=== PATIENT | female | born 1960 | race Two or more races ===

== ENCOUNTER 2017-09-30 17:30 | Observation (INO) | payer OTHER ==
[~2017-09-30] VITALS: Ht 152.4 cm; Wt 85.7 kg
[2017-09-30 18:24] LABS: BASO % 1 % (0-3); EOS # 0.1 x10^3/uL (0.0-0.7); EOS % 1 % (0-3); HEMATOCRIT 45.4 % (36.0-47.0); HEMOGLOBIN 15.5 g/dL (12.0-15.5); LYMPH # 2.6 x10^3/uL (1.0-4.8); LYMPH % 45 % (24-48); MEAN CORPUSCULAR HEMOGLOBIN 31 pg (25-35); MEAN CORPUSCULAR HGB CONC 34 g/dL (31-37); MEAN CORPUSCULAR VOLUME 91 fL (79-100); MONO # 0.4 x10^3/uL (0.0-1.1); MONO % 6 % (0-9); NEUT # 2.7 x10^3uL (1.8-7.7); NEUT % 47 % (31-73); PLATELET COUNT 262 x10^3/uL (140-400); RED CELL DISTRIBUTION WIDTH 13.2 % (11.5-14.5); WHITE BLOOD COUNT 5.8 x10^3/uL (4.0-11.0)
[2017-09-30 18:33] LABS: CALCIUM 9.6 mg/dL (8.5-10.1); CREATININE 0.9 mg/dL (0.6-1.0); POTASSIUM 3.3 mmol/L (3.5-5.1)
--- NOTE | 2017-09-30 19:21 | EKG ---
[facility] [address] [place] [address] Test Date: 2017-09-30 Test Time: 17:37:54 Pat Name: FREEDOM PARISH Department: Room: Gender: F Teacher Lip Reading: : 1960 Requested By: QUIRINO PINA Order Number: [id number] Reading MD: Chriss Vaughn MD Measurements Intervals [place] Rate: 92 P: 39 PA: 144 QRS: 40 QRSD: 74 T: 43 QT: 346 QTc: 432 Interpretive Statements SINUS RHYTHM Electronically Signed On 10-02-2017 15:21:02 CDT by Chriss Vaughn MD
--- NOTE | 2017-09-30 21:03 | PHYS DOC ---
Past Medical History Past Medical History: High Cholesterol, Hypertension Past Surgical History: Cholecystectomy Alcohol Use: None Drug Use: None Adult General Chief Complaint Chief Complaint: CHEST PAIN [facility] HPI Patient is a 56 year old female who presents with chest pain. Patient reports that she has been having a dullness or heavy sensation in her chest over the last 3 nights. Pain is been there consistently. It is sometimes worse when she takes a deep breath. Pain intermittently has radiated to the left and right arms and right shoulder. The patient denies a prior history of coronary artery disease. She states she did have a stress test many years earlier but was in a different state. She has not had a fever or chills or cough. She does have a significant family history. She states her brother had a heart attack when he was her age. Her father also had significant coronary artery disease and from a heart attack in his 50s. The patient has a secondary complaint of generalized frontotemporal and occipital headaches. She states she has a history of these headaches about monthly but has had a persistent headache over the last 4-5 days which she describes to be the worst headache. It is atypical for her headaches the last so long. She does not have vision changes. No nausea or vomiting. No focal neuro complaints. Her headaches have not previously been evaluated. Review of Systems Review of Systems Constitutional: Denies fever or chills Eyes: Denies change in visual acuity HENT: Denies nasal congestion Respiratory: Denies cough or shortness of breath Cardiovascular: No additional information not addressed in HPI GI: Denies abdominal pain, nausea, vomiting Musculoskeletal: Denies back pain Integument: Denies rash or skin lesions Neurologic: Denies focal neuro complaints All other systems were reviewed and found to be within normal limits, except as documented in this note. Allergies Allergies Allergies Coded Allergies Type Severity Reaction Last Updated Verified No Known Drug Allergies 07/06/15 No Physical Exam Physical Exam Constitutional: Well developed, well nourished, no acute distress HENT: Normocephalic, atraumatic Eyes: PERRLA, EOMI Neck: Normal range of motion, no tenderness, supple Cardiovascular:Heart rate regular rhythm, no murmur Lungs & Thorax: Bilateral breath sounds clear to auscultation Abdomen: Bowel sounds normal, soft Skin: Warm, dry, no erythema Extremities: No edema Neurologic: Alert and oriented X 3 Psychologic: Affect normal Current Patient Data Vital Signs Vital Signs Date Time Temp Pulse Resp B/P (MAP) Pulse Ox O2 Delivery O2 Flow Rate FiO2 09/30/17 20:55 90 20 145/90 (108) 97 Room Air 09/30/17 17:37 98.8 98.8 Lab Values Laboratory Tests Test 09/30/17 18:10 White Blood Count 5.8 x10^3/uL (4.0-11.0) Red Blood Count 5.00 x10^6/uL (3.50-5.40) Hemoglobin 15.5 g/dL (12.0-15.5) Hematocrit 45.4 % (36.0-47.0) Mean Corpuscular Volume 91 fL (79-100) Mean Corpuscular Hemoglobin 31 pg (25-35) Mean Corpuscular Hemoglobin Concent 34 g/dL (31-37) Red Cell Distribution Width 13.2 % (11.5-14.5) Platelet Count 262 x10^3/uL (140-400) Neutrophils (%) (Auto) 47 % (31-73) Lymphocytes (%) (Auto) 45 % (24-48) Monocytes (%) (Auto) 6 % (0-9) Eosinophils (%) (Auto) 1 % (0-3) Basophils (%) (Auto) 1 % (0-3) Neutrophils # (Auto) 2.7 x10^3uL (1.8-7.7) Lymphocytes # (Auto) 2.6 x10^3/uL (1.0-4.8) Monocytes # (Auto) 0.4 x10^3/uL (0.0-1.1) Eosinophils # (Auto) 0.1 x10^3/uL (0.0-0.7) Basophils # (Auto) 0.0 x10^3/uL (0.0-0.2) D-Dimer (Micheline) 0.47 ug/mlFEU (0.00-0.50) Sodium Level 139 mmol/L (136-145) Potassium Level 3.3 mmol/L (3.5-5.1) L Chloride Level 104 mmol/L (98-107) Carbon Dioxide Level 29 mmol/L (21-32) Anion Gap 6 (6-14) Blood Urea Nitrogen 15 mg/dL (7-20) Creatinine 0.9 mg/dL (0.6-1.0) Estimated GFR (Cockcroft-Gault) 65.0 Glucose Level 132 mg/dL (70-99) H Calcium Level 9.6 mg/dL (8.5-10.1) Troponin I Quantitative < 0.017 ng/mL (0.000-0.055) CK-Bcx-P-Type Natriuretic Peptide 24 pg/mL (0-124) Laboratory Tests 09/30/17 18:10 Laboratory Tests 09/30/17 18:10 EKG EKG No STEMI Interpretation Time: 17:40 Radiology/Procedures Radiology/Procedures CXR: no acute findings seen Course & Med Decision Making Course & Med Decision Making Pertinent Labs and Imaging studies reviewed. (See chart for details) Patient was evaluated in the emergency department for chest pain. She describes the pain to be more of a heaviness or pressure. She was also evaluated for worsening generalized headache symptoms. She did have a CT scan of her head which did not reveal acute findings. She was treated with a very small dose of morphine, Compazine, and Benadryl which did improve her headache syndrome. Regarding her chest pain, the patient has significant family history as well as some additional risk factors. Her EKG was nonacute in the ER. Her troponin was not elevated. The patient is admitted for observation and to receive cardiology evaluation for risk stratification as indicated. The patient is agreeable to the plan of care. The interpretive Sisteer telephone was used to communicate with the patient and all of her questions were answered prior to admission. The patient was agreeable to the plan of care. Dragon Disclaimer Dragon Disclaimer This electronic medical record was generated, in whole or in part, using a voice recognition dictation system. Departure Departure Referrals: MYRANDA TORRES MD (PCP) QUIRINO PINA DO Sep 30, 2017 21:03
[2017-09-30] MEDS ORDERED: NITROGLYCERIN SUBLINGUAL 0.4 MG BOTTLE OF 25. SL PRN (21:15)
[2017-09-30] MEDS ORDERED: MORPHINE SULFATE 4 MG/ML VIAL. IV PRN (21:15)
[2017-09-30] MEDS ORDERED: ACETAMINOPHEN 325 MG TABLET. PO PRN (21:15)
[2017-09-30] MEDS ORDERED: ONDANSETRON PF 4 MG/2 ML VIAL. IV PRN (21:15)
--- NOTE | 2017-09-30 21:22 | RAD ---
CT Head W/O Contrast: History: headache, no priors Comparison: none Axial images were obtained without contrast. The rinaldi and white matter appears normal and symmetrical for the patients age. There is no mass effect, extraaxial fluid collections or hydrocephalus. There is no gross bleed. There is no focal loss of rinaldi-white matter distinction to suggest acute ischemia, i.e. stroke. Impression: No acute findings. RS Compliance Statement: One or more of the following individualized dose reduction techniques were utilized for this examination: 1. Automated exposure control 2. Adjustment of the mA and/or kV according to patient size 3. Use of iterative reconstruction technique Electronically signed by: Steven Valencia III, MD (09/30/2017 9:18 PM) [facility]
[2017-09-30] MEDS ORDERED: MORPHINE SULFATE 2 MG/ML VIAL. IV ONE (21:30)
[2017-09-30] MEDS ORDERED: diphenhydrAMINE 50 MG/ML VIAL IVP ONE (21:30)
[2017-09-30] MEDS ORDERED: PROCHLORPERAZINE 10 MG/2 ML VIAL. IV ONE (21:30)
[2017-09-30 23:00] VITALS: BP 163/87
[2017-10-01] MEDS ORDERED: simvastatin (00:12)
[2017-10-01] MEDS ORDERED: lisinopril (00:12)
[2017-10-01 03:00] VITALS: BP 104/62
[2017-10-01 04:32] LABS: BASO % 0 % (0-3); EOS # 0.1 x10^3/uL (0.0-0.7); EOS % 1 % (0-3); HEMATOCRIT 42.2 % (36.0-47.0); HEMOGLOBIN 14.5 g/dL (12.0-15.5); LYMPH # 2.5 x10^3/uL (1.0-4.8); LYMPH % 40 % (24-48); MEAN CORPUSCULAR HEMOGLOBIN 31 pg (25-35); MEAN CORPUSCULAR HGB CONC 34 g/dL (31-37); MEAN CORPUSCULAR VOLUME 91 fL (79-100); MONO # 0.4 x10^3/uL (0.0-1.1); MONO % 7 % (0-9); NEUT # 3.2 x10^3uL (1.8-7.7); NEUT % 51 % (31-73); PLATELET COUNT 240 x10^3/uL (140-400); RED BLOOD COUNT 4.65 x10^6/uL (3.50-5.40); RED CELL DISTRIBUTION WIDTH 13.3 % (11.5-14.5); WHITE BLOOD COUNT 6.3 x10^3/uL (4.0-11.0)
[2017-10-01 07:00] VITALS: BP 147/90
--- NOTE | 2017-10-01 07:50 | RAD ---
EXAM: Portable upright AP view of the chest DATE: 09/30/2017 6:03 PM INDICATION: left side chest pain today COMPARISON: Acute abdominal series 06/20/2015 FINDINGS/ IMPRESSION: The heart is not enlarged. Mediastinal and hilar contours are normal. No focal parenchymal airspace opacity. No pleural effusion or pneumothorax. Electronically signed by: Leonard Cunha MD (10/01/2017 7:46 AM) [facility]
[2017-10-01 07:55] LABS: CALCIUM 9.7 mg/dL (8.5-10.1); CREATININE 0.8 mg/dL (0.6-1.0); GFR 74.5; POTASSIUM 3.7 mmol/L (3.5-5.1)
[2017-10-01] MEDS ORDERED: MORPHINE SULFATE 2 MG/ML VIAL. IV PRN (08:30)
[2017-10-01] MEDS ORDERED: ONDANSETRON PF 4 MG/2 ML VIAL. IV PRN (08:30)
[2017-10-01] MEDS ORDERED: ONDANSETRON ODT 4 MG TAB.RAPDIS. PO PRN (08:30)
[2017-10-01] MEDS ORDERED: HYDROcodone/APAP 5/325MG 1 TAB TABLET PO PRN (08:30)
[2017-10-01] MEDS ORDERED: LISINOPRIL 10 MG TABLET PO SCH (09:00)
[2017-10-01 09:08] LABS: CHOLESTEROL/HDL RATIO 4.8
[2017-10-01 11:00] VITALS: BP 180/108
--- NOTE | 2017-10-01 11:05 | PDOC2 ---
CARDIAC CONSULT DATE OF CONSULT Date of Consult DATE: 10/01/17 TIME: 11:03 REASON FOR CONSULT Reason for Consult: chest pain REFERRING PHYSICIAN Referring Physician: Octavio SOURCE Source: Chart review, Patient HISTORY OF PRESENT ILLNESS HISTORY OF PRESENT ILLNESS 56 year old female admitted through the ER with c/o chest pain occurring since Friday. Ibuprofen relieved pain that day. Recurred and presented to ER yesterday with c/o bilateral chest pain. Unclear if associated symptoms. Also with c/o headache at the same time. EKG and troponin levels not consistent with AMI. No pain overnight. Reason for Visit: chest pain PAST MEDICAL HISTORY Cardiovascular: HTN, Hyperlipidemia PAST SURGICAL HISTORY Past Surgical History: Cholecystectomy FAMILY HISTORY Family History: Heart Disease SOCIAL HISTORY Smoke: No ALCOHOL: none Drugs: None CURRENT MEDICATIONS CURRENT MEDICATIONS Current Medications Medications (Trade) Dose Ordered Sig/Lorenzo Route PRN Reason Start Time Stop Time Status Last Admin Dose Admin Morphine Sulfate (Morphine Sulfate) 2 mg 1X ONCE IV 09/30/17 21:30 09/30/17 21:31 DC 09/30/17 21:31 Prochlorperazine Edisylate (Compazine) 10 mg 1X ONCE IV 09/30/17 21:30 09/30/17 21:31 DC 09/30/17 21:31 Diphenhydramine HCl (Benadryl) 12.5 mg 1X ONCE IVP 09/30/17 21:30 09/30/17 21:31 DC 09/30/17 21:31 ALLERGIES ALLERGIES: Coded Allergies: No Known Drug Allergies (Unverified , 07/06/15) ROS General: No: Chills, Night Sweats, Fatigue, Malaise, Appetite, Other PSYCHOLOGICAL ROS: No: Anxiety, Behavioral Disorder, Concentration difficultie , Decreased libido, Depression, Disorientation, Hallucinations, Hostility, Irritablity, Memory difficulties, Mood Swings, Obsessive thoughts, Physical abuse, Sexual abuse, Sleep disturbances, Suicidal ideation, Other Eyes: No Blurry vision, No Decreased vision, No Double vision, No Dry eyes, No Excessive tearing, No Eye Pain, No Itchy Eyes, No Loss of vision, No Photophobia , No Scotomata, No Uses contacts, No Uses glasses, No Other HEENT: YES: Heacaches ALLERGY AND IMMUNOLOGY: No: Hives, Insect Bite Sensitivity, Itchy/Watery Eyes, Nasal Congestion, Post Nasal Drip, Seasonal Allergies, Other Hematological and Lymphatic: No: Bleeding Problems, Blood Clots, Blood Transfusions, Brusing, Night Sweats, Pallor, Swollen Lymph Nodes, Other ENDOCRINE: No: Breast Changes, Galactorrhea, Hair Pattern Changes, Hot Flashes , Malaise/lethargy, Mood Swings, Palpitations, Polydipsia/polyuria, Skin Changes , Temperature Intolerance, Unexpected Weight Changes, Other Respiratory: No: Cough, Hemoptysis, Orthopnea, Pleuritic Pain, Shortness of breath, SOB with excertion, Sputum Changes, Stridor, Tachypnea, Wheezing, Other Cardiovascular: yes Chest Pain Gastrointestinal: No Nausea, No Vomiting, No Abdominal Pain, No Diarrhea, No Constipation, No Melena, No Hematochezia, No Other Genitourinary: No Dysuria, No Frequency, No Incontinence, No Hematuria, No Retention, No Discharge, No Urgency, No Pain, No Flank Pain, No Other, No , No , No , No , No , No , No Musculoskeletal: No Gait Disturbance, No Joint Pain, No Joint Stiffness, No Joint Swelling, No Muscle Pain, No Muscular Weakness, No Pain In:, No Swelling In:, No Other Neurological: No Behavorial Changes, No Bowel/Bladder ControlChng, No Confusion , No Dizziness, No Gait Disturbance, No Headaches, No Impaired Coord/balance, No Memory Loss, No Numbness/Tingling, No Seizures, No Speech Problems, No Tremors, No Visual Changes, No Weakness, No Other Skin: No Dry Skin, No Eczema, No Hair Changes, No Lumps, No Mole Changes, No Mottling, No Nail Changes, No Pruritus, No Rash, No Skin Lesion Changes, No Other, No Acne PHYSICAL EXAM General: Alert, Oriented X3, Cooperative, No acute distress HEENT: Atraumatic, Mucous membr. moist/pink Lungs: Clear to auscultation, Normal air movement Heart: Normal S1, Normal S2, No murmurs, Other (pain not reproducible with palpation ) Abdomen: Normal bowel sounds, Soft Extremities: No edema, Normal pulses Neuro: Normal speech Psych/Mental Status: Mental status NL, Mood NL MUSCULOSKELETAL: No deformity VITALS VITALS Vital Signs Date Time Temp Pulse Resp B/P (MAP) Pulse Ox O2 Delivery O2 Flow Rate FiO2 10/01/17 07:00 97.5 78 16 147/90 (109) 96 Room Air 97.5 LABS Lab: Laboratory Tests Test 09/30/17 18:10 10/01/17 00:30 10/01/17 03:10 White Blood Count 5.8 x10^3/uL (4.0-11.0) 6.3 x10^3/uL (4.0-11.0) Red Blood Count 5.00 x10^6/uL (3.50-5.40) 4.65 x10^6/uL (3.50-5.40) Hemoglobin 15.5 g/dL (12.0-15.5) 14.5 g/dL (12.0-15.5) Hematocrit 45.4 % (36.0-47.0) 42.2 % (36.0-47.0) Mean Corpuscular Volume 91 fL (79-100) 91 fL (79-100) Mean Corpuscular Hemoglobin 31 pg (25-35) 31 pg (25-35) Mean Corpuscular Hemoglobin Concent 34 g/dL (31-37) 34 g/dL (31-37) Red Cell Distribution Width 13.2 % (11.5-14.5) 13.3 % (11.5-14.5) Platelet Count 262 x10^3/uL (140-400) 240 x10^3/uL (140-400) Neutrophils (%) (Auto) 47 % (31-73) 51 % (31-73) Lymphocytes (%) (Auto) 45 % (24-48) 40 % (24-48) Monocytes (%) (Auto) 6 % (0-9) 7 % (0-9) Eosinophils (%) (Auto) 1 % (0-3) 1 % (0-3) Basophils (%) (Auto) 1 % (0-3) 0 % (0-3) Neutrophils # (Auto) 2.7 x10^3uL (1.8-7.7) 3.2 x10^3uL (1.8-7.7) Lymphocytes # (Auto) 2.6 x10^3/uL (1.0-4.8) 2.5 x10^3/uL (1.0-4.8) Monocytes # (Auto) 0.4 x10^3/uL (0.0-1.1) 0.4 x10^3/uL (0.0-1.1) Eosinophils # (Auto) 0.1 x10^3/uL (0.0-0.7) 0.1 x10^3/uL (0.0-0.7) Basophils # (Auto) 0.0 x10^3/uL (0.0-0.2) 0.0 x10^3/uL (0.0-0.2) D-Dimer (Micheline) 0.47 ug/mlFEU (0.00-0.50) Sodium Level 139 mmol/L (136-145) 143 mmol/L (136-145) Potassium Level 3.3 mmol/L (3.5-5.1) 3.7 mmol/L (3.5-5.1) Chloride Level 104 mmol/L (98-107) 106 mmol/L (98-107) Carbon Dioxide Level 29 mmol/L (21-32) 29 mmol/L (21-32) Anion Gap 6 (6-14) 8 (6-14) Blood Urea Nitrogen 15 mg/dL (7-20) 17 mg/dL (7-20) Creatinine 0.9 mg/dL (0.6-1.0) 0.8 mg/dL (0.6-1.0) Estimated GFR (Cockcroft-Gault) 65.0 74.5 Glucose Level 132 mg/dL (70-99) 98 mg/dL (70-99) Calcium Level 9.6 mg/dL (8.5-10.1) 9.7 mg/dL (8.5-10.1) Troponin I Quantitative < 0.017 ng/mL (0.000-0.055) < 0.017 ng/mL (0.000-0.055) < 0.017 ng/mL (0.000-0.055) EY-Xkr-S-Type Natriuretic Peptide 24 pg/mL (0-124) Triglycerides Level 94 mg/dL (0-150) Cholesterol Level 227 mg/dL (0-200) LDL Cholesterol, Calculated 161 mg/dL (0-100) VLDL Cholesterol, Calculated 19 mg/dL (0-40) Non-HDL Cholesterol Calculated 180 mg/dL (0-129) HDL Cholesterol 47 mg/dL (40-60) Cholesterol/HDL Ratio 4.8 IMAGES IMAGES CXR without acute process EKG EKG no acute changes ASSESSMENT/PLAN ASSESSMENT/PLAN 1. chest pain --EKG and troponin levels not consistent with AMI --pain is not reproducible --risk factors include HTN, HLD, family history of premature CAD --send for MPI; if non-ischemic, may discharge later today 2. HLD --LDLS = 161 --not controlled on simvastatin --convert to atorvastatin and repeat FLP in 3 months 3. HTN --controlled with oral meds 4. obesity --weight loss recommended CAMERON MAGANA APRN Oct 01, 2017 11:05
[2017-10-01] MEDS ORDERED: REGADENOSON 0.4 MG/5 ML DISP.SYRIN. IV ONE ×2 (12:00→13:00)
[2017-10-01] MEDS ORDERED: LISI10TA2 PO (12:32)
[2017-10-01] MEDS ORDERED: ATOR20TA58 PO (12:32)
[2017-10-01] MEDS ORDERED: ASPI-612 PO (12:32)
--- NOTE | 2017-10-01 12:36 | PDOC3 ---
Discharge Summary Visit Information Date of Admission: Sep 30, 2017 Date of Discharge: Oct 01, 2017 Admitting Diagnosis Comment: CP in an adult at rest, MPI pending differentials include GERD her costochondritis Strong family history cAD Hypertension on lisinopril-unknown dose Dyslipidemia on simvastatin-unknown dose Final Diagnosis Problems Medical Problems: (1) Other chest pain Status: Acute Brief Hospital Course Allergies Allergies Coded Allergies Type Severity Reaction Last Updated Verified No Known Drug Allergies 07/06/15 No Vital Signs Vital Signs Date Time Temp Pulse Resp B/P (MAP) Pulse Ox O2 Delivery O2 Flow Rate FiO2 10/01/17 11:15 78 147/90 10/01/17 11:00 96.6 14 97 Room Air 96.6 Lab Results Laboratory Tests Test 09/30/17 18:10 10/01/17 00:30 10/01/17 03:10 White Blood Count 5.8 x10^3/uL (4.0-11.0) 6.3 x10^3/uL (4.0-11.0) Red Blood Count 5.00 x10^6/uL (3.50-5.40) 4.65 x10^6/uL (3.50-5.40) Hemoglobin 15.5 g/dL (12.0-15.5) 14.5 g/dL (12.0-15.5) Hematocrit 45.4 % (36.0-47.0) 42.2 % (36.0-47.0) Mean Corpuscular Volume 91 fL (79-100) 91 fL (79-100) Mean Corpuscular Hemoglobin 31 pg (25-35) 31 pg (25-35) Mean Corpuscular Hemoglobin Concent 34 g/dL (31-37) 34 g/dL (31-37) Red Cell Distribution Width 13.2 % (11.5-14.5) 13.3 % (11.5-14.5) Platelet Count 262 x10^3/uL (140-400) 240 x10^3/uL (140-400) Neutrophils (%) (Auto) 47 % (31-73) 51 % (31-73) Lymphocytes (%) (Auto) 45 % (24-48) 40 % (24-48) Monocytes (%) (Auto) 6 % (0-9) 7 % (0-9) Eosinophils (%) (Auto) 1 % (0-3) 1 % (0-3) Basophils (%) (Auto) 1 % (0-3) 0 % (0-3) Neutrophils # (Auto) 2.7 x10^3uL (1.8-7.7) 3.2 x10^3uL (1.8-7.7) Lymphocytes # (Auto) 2.6 x10^3/uL (1.0-4.8) 2.5 x10^3/uL (1.0-4.8) Monocytes # (Auto) 0.4 x10^3/uL (0.0-1.1) 0.4 x10^3/uL (0.0-1.1) Eosinophils # (Auto) 0.1 x10^3/uL (0.0-0.7) 0.1 x10^3/uL (0.0-0.7) Basophils # (Auto) 0.0 x10^3/uL (0.0-0.2) 0.0 x10^3/uL (0.0-0.2) D-Dimer (Micheline) 0.47 ug/mlFEU (0.00-0.50) Sodium Level 139 mmol/L (136-145) 143 mmol/L (136-145) Potassium Level 3.3 mmol/L (3.5-5.1) 3.7 mmol/L (3.5-5.1) Chloride Level 104 mmol/L (98-107) 106 mmol/L (98-107) Carbon Dioxide Level 29 mmol/L (21-32) 29 mmol/L (21-32) Anion Gap 6 (6-14) 8 (6-14) Blood Urea Nitrogen 15 mg/dL (7-20) 17 mg/dL (7-20) Creatinine 0.9 mg/dL (0.6-1.0) 0.8 mg/dL (0.6-1.0) Estimated GFR (Cockcroft-Gault) 65.0 74.5 Glucose Level 132 mg/dL (70-99) 98 mg/dL (70-99) Calcium Level 9.6 mg/dL (8.5-10.1) 9.7 mg/dL (8.5-10.1) Troponin I Quantitative < 0.017 ng/mL (0.000-0.055) < 0.017 ng/mL (0.000-0.055) < 0.017 ng/mL (0.000-0.055) IT-Snw-I-Type Natriuretic Peptide 24 pg/mL (0-124) Triglycerides Level 94 mg/dL (0-150) Cholesterol Level 227 mg/dL (0-200) LDL Cholesterol, Calculated 161 mg/dL (0-100) VLDL Cholesterol, Calculated 19 mg/dL (0-40) Non-HDL Cholesterol Calculated 180 mg/dL (0-129) HDL Cholesterol 47 mg/dL (40-60) Cholesterol/HDL Ratio 4.8 Laboratory Tests Test 09/30/17 18:10 10/01/17 00:30 10/01/17 03:10 White Blood Count 5.8 x10^3/uL (4.0-11.0) 6.3 x10^3/uL (4.0-11.0) Red Blood Count 5.00 x10^6/uL (3.50-5.40) 4.65 x10^6/uL (3.50-5.40) Hemoglobin 15.5 g/dL (12.0-15.5) 14.5 g/dL (12.0-15.5) Hematocrit 45.4 % (36.0-47.0) 42.2 % (36.0-47.0) Mean Corpuscular Volume 91 fL (79-100) 91 fL (79-100) Mean Corpuscular Hemoglobin 31 pg (25-35) 31 pg (25-35) Mean Corpuscular Hemoglobin Concent 34 g/dL (31-37) 34 g/dL (31-37) Red Cell Distribution Width 13.2 % (11.5-14.5) 13.3 % (11.5-14.5) Platelet Count 262 x10^3/uL (140-400) 240 x10^3/uL (140-400) Neutrophils (%) (Auto) 47 % (31-73) 51 % (31-73) Lymphocytes (%) (Auto) 45 % (24-48) 40 % (24-48) Monocytes (%) (Auto) 6 % (0-9) 7 % (0-9) Eosinophils (%) (Auto) 1 % (0-3) 1 % (0-3) Basophils (%) (Auto) 1 % (0-3) 0 % (0-3) Neutrophils # (Auto) 2.7 x10^3uL (1.8-7.7) 3.2 x10^3uL (1.8-7.7) Lymphocytes # (Auto) 2.6 x10^3/uL (1.0-4.8) 2.5 x10^3/uL (1.0-4.8) Monocytes # (Auto) 0.4 x10^3/uL (0.0-1.1) 0.4 x10^3/uL (0.0-1.1) Eosinophils # (Auto) 0.1 x10^3/uL (0.0-0.7) 0.1 x10^3/uL (0.0-0.7) Basophils # (Auto) 0.0 x10^3/uL (0.0-0.2) 0.0 x10^3/uL (0.0-0.2) D-Dimer (Micheline) 0.47 ug/mlFEU (0.00-0.50) Sodium Level 139 mmol/L (136-145) 143 mmol/L (136-145) Potassium Level 3.3 mmol/L (3.5-5.1) 3.7 mmol/L (3.5-5.1) Chloride Level 104 mmol/L (98-107) 106 mmol/L (98-107) Carbon Dioxide Level 29 mmol/L (21-32) 29 mmol/L (21-32) Anion Gap 6 (6-14) 8 (6-14) Blood Urea Nitrogen 15 mg/dL (7-20) 17 mg/dL (7-20) Creatinine 0.9 mg/dL (0.6-1.0) 0.8 mg/dL (0.6-1.0) Estimated GFR (Cockcroft-Gault) 65.0 74.5 Glucose Level 132 mg/dL (70-99) 98 mg/dL (70-99) Calcium Level 9.6 mg/dL (8.5-10.1) 9.7 mg/dL (8.5-10.1) Troponin I Quantitative < 0.017 ng/mL (0.000-0.055) < 0.017 ng/mL (0.000-0.055) < 0.017 ng/mL (0.000-0.055) JE-Iqr-Q-Type Natriuretic Peptide 24 pg/mL (0-124) Triglycerides Level 94 mg/dL (0-150) Cholesterol Level 227 mg/dL (0-200) LDL Cholesterol, Calculated 161 mg/dL (0-100) VLDL Cholesterol, Calculated 19 mg/dL (0-40) Non-HDL Cholesterol Calculated 180 mg/dL (0-129) HDL Cholesterol 47 mg/dL (40-60) Cholesterol/HDL Ratio 4.8 Brief Hospital Course Ms. Alarcon is a 56 old [sex] who presented with [ ]chest pain she described as dullness or heavy sensation over the last night. She does have strong family history of CAD. But denies personal history. Pain sometimes radiated to her bilateral arms and right shoulder. Had a stress test in the past unknown results. No other symptoms no presyncopal temp symptoms. She is a nonsmoker nondrinker. She also did complain of some headaches, CT head and chest x-ray normal. HAs been seen by cardiology, troponins 3 negative with reassuring EKG. For stress test today. No identifiable precipitating or alleviating factors. Discharge Information Condition at Discharge: Improved, Stable Follow Up: Weeks (PCP prn) Disposition/Orders: D/C to Home Scheduled Aspirin (Aspirin Ec) 81 Mg Tablet.dr, 1 TAB PO DAILY, #30 Ref 3 Prescribed by: GEOVANNY MANZANARES on 10/01/17 1232 Atorvastatin Calcium (Atorvastatin Calcium) 20 Mg Tablet, 20 MG PO QHS for 30 Days, #30 Prescribed by: GEOVANNY MANZANARES on 10/01/17 1232 Lisinopril (Lisinopril) 10 Mg Tablet, 10 MG PO DAILY for 30 Days, #30 Prescribed by: GEOVANNY MANZANARES on 10/01/17 1232 Miscellaneous Medications [lisinopril] , (Reported) Entered as Reported by: WALTER CERNA on 10/01/1711 Last Action: Converted on 10/01/17830 by GEOVANNY MANZANARES [simvastatin] , (Reported) Entered as Reported by: WALTER CERNA on 10/01/1711 Last Action: Converted on 10/01/17 0831 by GEOVANNY SWANSON MD Oct 01, 2017 12:36
--- NOTE | 2017-10-01 12:38 | PDOC1 ---
History and Physical Date of Admission Date of Admission DATE: 10/01/17 TIME: 12:35 Identification/Chief Complaint Chief Complaint Chest pain Source Source: Caregiver, Chart review, Patient History of Present Illness History of Present Illness Ms. Alarcon is a 56 old [sex] who presented with [ ]chest pain she described as dullness or heavy sensation over the last night. She does have strong family history of CAD. But denies personal history. Pain sometimes radiated to her bilateral arms and right shoulder. Had a stress test in the past unknown results. No other symptoms no presyncopal temp symptoms. She is a nonsmoker nondrinker. She also did complain of some headaches, CT head and chest x-ray normal. HAs been seen by cardiology, troponins 3 negative with reassuring EKG. For stress test today. No identifiable precipitating or alleviating factors. Past Medical History Cardiovascular: HTN, Hyperlipidemia Past Surgical History Past Surgical History: Cholecystectomy Family History Family History: Heart Disease Social History Smoke: No ALCOHOL: none Drugs: None Current Problem List Problem List Problems Medical Problems: (1) Other chest pain Status: Acute Current Medications Current Medications Current Medications Morphine Sulfate (Morphine Sulfate) 2 mg 1X ONCE IV Last administered on at 21:31; Start 09/30/17 at 21:30; Stop 09/30/17 at 21:31; Status DC Prochlorperazine Edisylate (Compazine) 10 mg 1X ONCE IV Last administered on at 21:31; Start 09/30/17 at 21:30; Stop 09/30/17 at 21:31; Status DC Diphenhydramine HCl (Benadryl) 12.5 mg 1X ONCE IVP Last administered on at 21:31; Start 09/30/17 at 21:30; Stop 09/30/17 at 21:31; Status DC Ondansetron HCl (Zofran) 4 mg PRN Q8HRS PRN IV NAUSEA/VOMITING; Start 09/30/17 at 21:15; Stop 10/01/17 at 08:36; Status DC Morphine Sulfate (Morphine Sulfate) 4 mg PRN Q2HR PRN IV PAIN; Start 09/30/17 at 21:15; Stop 10/01/17 at 08:36; Status DC Acetaminophen (Tylenol) 650 mg PRN Q4HRS PRN PO FEVER; Start 09/30/17 at 21:15 ; Stop 10/01/17 at 21:14 Nitroglycerin (Nitrostat) 0.4 mg PRN Q5MIN PRN SL CHEST PAIN; Start 09/30/17 at 21:15; Stop 10/01/17 at 21:14 Ondansetron HCl (Zofran) 4 mg PRN Q6HRS PRN IV NAUSEA/VOMITING; Start 10/01/17 at 08:30 Ondansetron HCl (Zofran Odt) 4 mg PRN Q6HRS PRN PO NAUSEA/VOMITING; Start 10/01 at 08:30 Morphine Sulfate (Morphine Sulfate) 2 mg PRN Q2HR PRN IV PAIN; Start 10/01/17 at 08:30 Acetaminophen/ Hydrocodone Bitart (Lortab 5/325) 1 tab PRN Q4HRS PRN PO MODERATE PAIN; Start 10/01/17 at 08:30 Lisinopril (Prinivil) 10 mg DAILY PO Last administered on 10/01/17at 11:15; Start 10/01/17 at 09:00 Simvastatin (Zocor) 20 mg HS PO ; Start 10/01/17 at 21:00; Stop 10/01/17 at 21: 00; Status DC Atorvastatin Calcium (Lipitor) 20 mg QHS PO ; Start 10/01/17 at 21:00 Active Scripts Active Aspirin Ec (Aspirin) 81 Mg Tablet.dr 1 Tab PO DAILY Lisinopril 10 Mg Tablet 10 Mg PO DAILY 30 Days Atorvastatin Calcium 20 Mg Tablet 20 Mg PO QHS 30 Days Reported [simvastatin] [lisinopril] Allergies Allergies: Coded Allergies: No Known Drug Allergies (Unverified , 07/06/15) ROS Review of System A 14 point ROS was completed with the following noted as positive: Other systems reviewed and negative. \CONSTITUTIONAL: No fever or chills EYES: No recent changes SKIN: No rash or itching CARDIOVASCULAR: No chest pain, syncope, palpitations, or edema RESPIRATORY: No SOB or cough GASTROINTESTINAL: No nausea, vomiting or abdominal pain NEUROLOGICAL: No headaches or weakness ENDOCRINE: No cold or heat intolerance GENITOURINARY: No urgency or frequency of urination MUSCULOSKELETAL: No back pain or joint pain LYMPHATICS: No enlarged lymph nodes PSYCHIATRIC: No anxiety or depression Physical Exam General: Alert, Oriented X3, Cooperative, No acute distress HEENT: Atraumatic, PERRLA, EOMI Lungs: Clear to auscultation, Normal air movement Heart: S1S2, RRR, no thrills, no rubs, no gallops, no murmurs Cardiovascular: S1, S2 Breasts: Normal, Rt breast nml w/o mass, Lt breast nml w/o mass, Nipples normal Abdomen: Normal bowel sounds, Soft, No tenderness, No hepatosplenomegaly, No masses Extremities: No clubbing, No cyanosis, No edema, Normal pulses, No tenderness/ swelling Skin: No rashes, No breakdown, No significant lesion Neuro: Normal gait, Normal speech, Strength at 5/5 X4 ext, Normal tone, Sensation intact, Cranial nerves 3-12 NL, Reflexes 2+ Psych/Mental Status: Mental status NL, Mood NL Vitals Vitals Vital Signs Date Time Temp Pulse Resp B/P (MAP) Pulse Ox O2 Delivery O2 Flow Rate FiO2 10/01/17 11:15 78 147/90 10/01/17 11:00 96.6 14 97 Room Air 96.6 Labs Labs Laboratory Tests Test 09/30/17 18:10 10/01/17 00:30 10/01/17 03:10 White Blood Count 5.8 x10^3/uL (4.0-11.0) 6.3 x10^3/uL (4.0-11.0) Red Blood Count 5.00 x10^6/uL (3.50-5.40) 4.65 x10^6/uL (3.50-5.40) Hemoglobin 15.5 g/dL (12.0-15.5) 14.5 g/dL (12.0-15.5) Hematocrit 45.4 % (36.0-47.0) 42.2 % (36.0-47.0) Mean Corpuscular Volume 91 fL (79-100) 91 fL (79-100) Mean Corpuscular Hemoglobin 31 pg (25-35) 31 pg (25-35) Mean Corpuscular Hemoglobin Concent 34 g/dL (31-37) 34 g/dL (31-37) Red Cell Distribution Width 13.2 % (11.5-14.5) 13.3 % (11.5-14.5) Platelet Count 262 x10^3/uL (140-400) 240 x10^3/uL (140-400) Neutrophils (%) (Auto) 47 % (31-73) 51 % (31-73) Lymphocytes (%) (Auto) 45 % (24-48) 40 % (24-48) Monocytes (%) (Auto) 6 % (0-9) 7 % (0-9) Eosinophils (%) (Auto) 1 % (0-3) 1 % (0-3) Basophils (%) (Auto) 1 % (0-3) 0 % (0-3) Neutrophils # (Auto) 2.7 x10^3uL (1.8-7.7) 3.2 x10^3uL (1.8-7.7) Lymphocytes # (Auto) 2.6 x10^3/uL (1.0-4.8) 2.5 x10^3/uL (1.0-4.8) Monocytes # (Auto) 0.4 x10^3/uL (0.0-1.1) 0.4 x10^3/uL (0.0-1.1) Eosinophils # (Auto) 0.1 x10^3/uL (0.0-0.7) 0.1 x10^3/uL (0.0-0.7) Basophils # (Auto) 0.0 x10^3/uL (0.0-0.2) 0.0 x10^3/uL (0.0-0.2) D-Dimer (Micheline) 0.47 ug/mlFEU (0.00-0.50) Sodium Level 139 mmol/L (136-145) 143 mmol/L (136-145) Potassium Level 3.3 mmol/L (3.5-5.1) 3.7 mmol/L (3.5-5.1) Chloride Level 104 mmol/L (98-107) 106 mmol/L (98-107) Carbon Dioxide Level 29 mmol/L (21-32) 29 mmol/L (21-32) Anion Gap 6 (6-14) 8 (6-14) Blood Urea Nitrogen 15 mg/dL (7-20) 17 mg/dL (7-20) Creatinine 0.9 mg/dL (0.6-1.0) 0.8 mg/dL (0.6-1.0) Estimated GFR (Cockcroft-Gault) 65.0 74.5 Glucose Level 132 mg/dL (70-99) 98 mg/dL (70-99) Calcium Level 9.6 mg/dL (8.5-10.1) 9.7 mg/dL (8.5-10.1) Troponin I Quantitative < 0.017 ng/mL (0.000-0.055) < 0.017 ng/mL (0.000-0.055) < 0.017 ng/mL (0.000-0.055) JR-Pha-Y-Type Natriuretic Peptide 24 pg/mL (0-124) Triglycerides Level 94 mg/dL (0-150) Cholesterol Level 227 mg/dL (0-200) LDL Cholesterol, Calculated 161 mg/dL (0-100) VLDL Cholesterol, Calculated 19 mg/dL (0-40) Non-HDL Cholesterol Calculated 180 mg/dL (0-129) HDL Cholesterol 47 mg/dL (40-60) Cholesterol/HDL Ratio 4.8 Laboratory Tests Test 09/30/17 18:10 10/01/17 00:30 10/01/17 03:10 White Blood Count 5.8 x10^3/uL (4.0-11.0) 6.3 x10^3/uL (4.0-11.0) Red Blood Count 5.00 x10^6/uL (3.50-5.40) 4.65 x10^6/uL (3.50-5.40) Hemoglobin 15.5 g/dL (12.0-15.5) 14.5 g/dL (12.0-15.5) Hematocrit 45.4 % (36.0-47.0) 42.2 % (36.0-47.0) Mean Corpuscular Volume 91 fL (79-100) 91 fL (79-100) Mean Corpuscular Hemoglobin 31 pg (25-35) 31 pg (25-35) Mean Corpuscular Hemoglobin Concent 34 g/dL (31-37) 34 g/dL (31-37) Red Cell Distribution Width 13.2 % (11.5-14.5) 13.3 % (11.5-14.5) Platelet Count 262 x10^3/uL (140-400) 240 x10^3/uL (140-400) Neutrophils (%) (Auto) 47 % (31-73) 51 % (31-73) Lymphocytes (%) (Auto) 45 % (24-48) 40 % (24-48) Monocytes (%) (Auto) 6 % (0-9) 7 % (0-9) Eosinophils (%) (Auto) 1 % (0-3) 1 % (0-3) Basophils (%) (Auto) 1 % (0-3) 0 % (0-3) Neutrophils # (Auto) 2.7 x10^3uL (1.8-7.7) 3.2 x10^3uL (1.8-7.7) Lymphocytes # (Auto) 2.6 x10^3/uL (1.0-4.8) 2.5 x10^3/uL (1.0-4.8) Monocytes # (Auto) 0.4 x10^3/uL (0.0-1.1) 0.4 x10^3/uL (0.0-1.1) Eosinophils # (Auto) 0.1 x10^3/uL (0.0-0.7) 0.1 x10^3/uL (0.0-0.7) Basophils # (Auto) 0.0 x10^3/uL (0.0-0.2) 0.0 x10^3/uL (0.0-0.2) D-Dimer (Micheline) 0.47 ug/mlFEU (0.00-0.50) Sodium Level 139 mmol/L (136-145) 143 mmol/L (136-145) Potassium Level 3.3 mmol/L (3.5-5.1) 3.7 mmol/L (3.5-5.1) Chloride Level 104 mmol/L (98-107) 106 mmol/L (98-107) Carbon Dioxide Level 29 mmol/L (21-32) 29 mmol/L (21-32) Anion Gap 6 (6-14) 8 (6-14) Blood Urea Nitrogen 15 mg/dL (7-20) 17 mg/dL (7-20) Creatinine 0.9 mg/dL (0.6-1.0) 0.8 mg/dL (0.6-1.0) Estimated GFR (Cockcroft-Gault) 65.0 74.5 Glucose Level 132 mg/dL (70-99) 98 mg/dL (70-99) Calcium Level 9.6 mg/dL (8.5-10.1) 9.7 mg/dL (8.5-10.1) Troponin I Quantitative < 0.017 ng/mL (0.000-0.055) < 0.017 ng/mL (0.000-0.055) < 0.017 ng/mL (0.000-0.055) OB-Sqx-W-Type Natriuretic Peptide 24 pg/mL (0-124) Triglycerides Level 94 mg/dL (0-150) Cholesterol Level 227 mg/dL (0-200) LDL Cholesterol, Calculated 161 mg/dL (0-100) VLDL Cholesterol, Calculated 19 mg/dL (0-40) Non-HDL Cholesterol Calculated 180 mg/dL (0-129) HDL Cholesterol 47 mg/dL (40-60) Cholesterol/HDL Ratio 4.8 VTE Prophylaxis Ordered VTE Prophylaxis Devices: Yes VTE Pharmacological Prophylaxi: Yes Assessment/Plan Assessment/Plan Chest pain Hypertension, controlled Dyslipidemia on statin Plan: Awaiting MPI, if negative and okay for cardiology to discharge then will DC later Advise aspirin, Rx on chart including lisinopril and simvastatin I am unsure of her dose, language barrier, she does not know her home regimen dose GEOVANNY MANZANARES MD Oct 01, 2017 12:38
[2017-10-01 15:00] VITALS: BP 162/97
[2017-10-01] MEDS ORDERED: SIMVASTATIN 20 MG TABLET PO SCH (21:00)
[2017-10-01] MEDS ORDERED: ATORVASTATIN CALCIUM 20 MG TABLET PO SCH (21:00)
--- NOTE | 2017-10-02 12:38 | RAD ---
MR#: [id number] Date of Study: 10/01/2017 Ordering Physician: CAMERON MAGANA, Referring Physician: NI BONDS Tech: Charlette Lockhart RT (R) (N) APPROVED REPORT Test Type: Pharmacological Stress Nurse/Tech: Gege Garcia R.N. Test Indications: c/p Cardiac History: htn Medications: See Electronic Medical Record Medical History: See Electronic Medical RecordSee Electronic Medical Record Resting Heart Rate: 74 bpm Resting Blood Pressure: 148/89mmHg Pretest Chest Pain: No chest pain Nurse/Tech Notes S1S2, lungs CTA Consent: The procedure was explained to the patient in lay terms. Informed consent was witnessed. Sidney eout was entered into [employer]. History and Stress Test performed by [facility]. Details Pharmacologic stress testing was performed using 0.4mg per 5ml of regadenoson given intravenously ove r 7-10 seconds. Stress Symptoms POST EXERCISE Reason for Termination: Infusion complete Max HR: 111 bpm Max Blood Pressure: 151/94mmHg Blood Pressure response to exercise: Normal blood pressure response during stress. Heart Rate response to exercise: wnl Chest Pain: No. Arrhythmia: No. ST Change: No. INTERPRETATION Stress EKG Conclusion: Baseline EKG showed sinus rhythm. Non diagnostic changes at peak stress. No arrhythmias. Imaging Protocol IMAGE PROTOCOL: Rest Tc-99m/stress Tc-99m 1 day Rest: Stress: Viability: Radiopharm.Tc99m [id number] Sestamibi Dose12.2mCi 34.3mCi Duration 13min. 13min. Img Date 10/01/2017 10/01/2017 Inj-Img Urne75smf. 60min. Rest Admin Site:IV - Left AntecubitalAdministrator:ELMO Sosa Stress Admin Site: IV - Left AntecubitalAdministrator: ELMO Sosa STRESS DATA End Diast. Vol.61.0mlLVEDV index BSA34.0ml End Syst. Vol.17.0mlLVESV index BSA9.0ml Myocardial Ywky097.0gEject. Iwsvyggd67.0% Stress Scores Regional WT0.00Summed WT2.00 Regional WM0.00Summed WM3.00 Study quality was good. Left Ventricular size was Normal at Rest and Stress. Lung uptake was Normal. Left Ventricular ejection fraction is 72%. The rest and stress images show normal perfusion, normal contraction and thickening. LV Perf. Quant 17 Seg. SSS0.00 17 Seg. SRS0.00 17 Seg. SDS0.00 Stress Defect Extent (% LAD)0.00Rest Defect Extent (% LAD)0.00Rev. Defect Extent (% LAD)0.00 Stress Defect Extent (% LCX) 0.00Rest Defect Extent (% LCX)0.00Rev. Defect Extent (% LCX)0.00 Stress Defect Extent (% RCA)0.00Rest Defect Extent (% RCA)0.00Rev. Defect Extent (% RCA)0.00 Stress Defect Extent (% BRITTANI)0.00Rest Defect Extent (% BRITTANI)0.00Rev. Defect Extent (% BRITTANI)0.00 Conclusion 1. Regadenoson cardioisotope stress test did not show any evidence of ischemia or infarct. 2. Normal left ventricular systolic function with ejection fraction calculated at 72%. 3. Low risk for cardiac events. Signed by : Charlie Ha, Electronically Approved : 10/02/2017 12:36:23
== END 2017-10-01 17:30 | disposition home or self-care (01) ==
LOC: ER 17:30 → INTOOBSV 21:10 → 5 SOUTH 21:10
PROVIDERS: ADMIT Family Medicine; ATTEND Family Medicine
DX: M94.0 Chondrocostal junction syndrome [Tietze] (principal); I25.10 Atherosclerotic heart disease of native coronary artery without angina pectoris; E78.00 Pure hypercholesterolemia, unspecified; K21.9 Gastro-esophageal reflux disease without esophagitis; E66.9 Obesity, unspecified; E78.5 Hyperlipidemia, unspecified; I10 Essential (primary) hypertension; Z82.49 Family history of ischemic heart disease and other diseases of the circulatory system
CPT/HCPCS: 36415; 70450; 71045; 78452; 80048; 80061; 83880; 84484; 85025; 85379; 93005; 93017; 96374; 96375; 99285; A9500; G0378; J0780; J1200; J2270; J2785; 96376; G0379